=== PATIENT | female | born 1955 | race Caucasian/White ===

== ENCOUNTER 2023-06-10 07:59 | Outpatient (OUT) | payer OTHER, SELFPAY ==
--- NOTE | 2023-06-10 08:03 | XR_ITS ---
The [address] [address] Patient Name: TARA ROA MRN: [id number] date: 1955 Sex: F Assigned Patient Location: [facility] Current Patient Location: [facility] Accession/Order Number: [id number] Exam Date: 06/10/2023 08:20 Report Date: 06/10/2023 08:46 At the request of: RAFAELA FRYE Procedure: XR shoulder LT min 2V EXAM: Left shoulder. HISTORY: . Left Shoulder Pain . COMPARISON: None. TECHNIQUE: 3 views FINDINGS: No fracture or dislocation of the left shoulder is noted. Early arthritic changes are noted involving the humeral head as well as the left AC joint. Surrounding soft tissues are unremarkable. XR/XR shoulder LT min 2V IMPRESSION: 1. No acute bony abnormality left shoulder. 2. Early arthritic changes of the left AC joint. Electronically authenticated by: AMAURI BACON Date: 06/10/2023 08:46
== END 2023-06-10 08:00 | disposition home or self-care (01) ==
LOC: RAD 07:59
PROVIDERS: PCP Nurse Practitioner; Visit Provider Nurse Practitioner
DX: M25.512 Pain in left shoulder (principal)
CPT/HCPCS: 73030

== ENCOUNTER 2024-06-01 07:37 | Emergency (ER) | payer OTHER, SELFPAY ==
[2024-06-01 07:43] VITALS: BP 137/78; PULSE 79; TEMP 37.1; O2SAT 95; BMI 31.1
--- NOTE | 2024-06-01 07:57 | XR_ITS ---
The [address] [address] Patient Name: TARA ROA MRN: [id number] date: 1955 Sex: F Assigned Patient Location: ER Current Patient Location: Accession/Order Number: [id number] Exam Date: 06/01/2024 08:20 Report Date: 06/01/2024 09:04 At the request of: KATHLEEN COVINGTON Procedure: XR knee RT 3V EXAM: XR knee RT 3V HISTORY: pain COMPARISON: None. TECHNIQUE: AP, oblique and lateral views of the right knee performed. FINDINGS: The bony alignment is anatomic. There is no fracture. There are mild degenerative changes at the medial compartment of the femoral-tibial and patellofemoral articulations. There is a 3.3 mm ossicle projecting over the inner margin of the lateral compartment of the femoral-tibial articulation. Small enthesophytes at the patellar attachment of the quadriceps and patellar tendons. There is a moderate joint effusion at the knee. XR/XR knee RT 3V IMPRESSION: There is no acute fracture or malalignment. Degenerative changes as described. Moderate joint effusion at the knee. Electronically authenticated by: MARYLOU COREY Date: 06/01/2024 09:04
--- OUTSIDE RECORDS SUMMARY | 2024-06-01 07:57 | XMS_ITS | CCD ---
Author Organization [facility] Care Team Providers Care Blender / Cook Name Role Phone NEAL MCCORMICK JR Unavailable Unavailable JACE CUELLAR JR Unavailable Unav ailable NEAL MCCORMICK JR Unavailable Unavailable Tracy Gaytan Primary Care Unavailable Jace Cuellar Jr Attending Unavailable GaytanTracy duran Primary Care Unavailable Jace Cuellar Jr Admitting Unavailable Jace Cuellar Jr Attending Unavailable Laura Rivera Unavailable GAYTAN ., DR TRACY Kan Attending Unavailable GAYTAN ., DR TRACY Kan Admitting Unavailable GAYTAN ., DR TRACY Kan Primary Care Unavailable GAYTAN ., DR TRACY Kan Consulting Unavailable WILLIAMS, DR AMAURI Rodríguez Consulting Unavailable GAYTAN ., DR TRACY Kan Attending Unavailable GAYTAN ., DR TRACY Kan Admitting Unavailable GAYTAN ., DR TRACY Kan Primary Care Unavailable GAYATN ., DR TRACY Kan Consulting Unavailable GAYTAN ., DR TRACY Kan Consulting Unavailable GAYTAN ., DR TRACY Kan Attending Unavailable GAYTAN ., DR TRACY Kan Admitting Unavailable GAYTAN ., DR TRACY Kan Primary Care Unavailable Opal Spaulding Attending Unavailable Opal Spaulding Attending Unavailable Opal Spaulding Attending Unavailable Opal Spaulding Attending Unavailable Gaytan Tracy ALBERTO Primary Care Provider [phone] Medications Current Medications Medication Drug Class(es) Dates Sig (Normalized) Sig (Original) [id number] 200 actuat albuterol 0.09 mg/actuat metered dose inhaler (1 source) beta2-Adrenergic Agonist Start: 12-09-2021 take 2 puff(s) by inhalation every four hours as needed Albuterol Sulfate HFA 108 (90 Base) MCG/ACT 2 puffs as needed Inhalation every 4 hrs Dec, Active amitriptyline hydrochloride 25 mg oral tablet (2 sources) Tricyclic Antidepressant take 1-2 tablets by mouth 2 hour(s) before bedtime for sleep amitriptyline (Elavil) 25 MG tablet TAKE 1 - 2 TABLETS BY MOUTH TWO HOURS BEFORE BEDTIME FOR SLEEP Active baclofen 10 mg oral tablet (1 source) gamma-Aminobutyric Acid-ergic Agonist Baclofen 10 MG Oral for 30 Days Active celecoxib 200 mg oral capsule (2 sources) Nonsteroidal Anti-inflammatory Drug take 1 capsule by mouth in the morning celecoxib (CeleBREX) 200 MG capsule Take 200 mg by mouth in the morning. Active Celecoxib Active citalopram 20 mg oral tablet (2 sources) Serotonin Reuptake Inhibitor take 1 tablet by mouth in the morning citalopram (CeleXA) 20 MG tablet Take 20 mg by mouth in the morning. Active clopidogrel 75 mg oral tablet (1 source) P2Y12 Platelet Inhibitor take 1 tablet by mouth in the morning clopidogrel (Plavix) 75 MG tablet Take 75 mg by mouth in the morning. Active 12 hr dextromethorphan hydrobromide 30 mg / guaiFENesin 600 mg extended release oral tablet (1 source) Uncompetitive L-niajby-U-aspartate Receptor Antagonist, Sigma-1 Agonist Start: 2021 take 1 tablet by mouth every twelve hours Mucinex DM 30-600 MG 1 tablet as needed Orally every 12 hrs Dec, Active fenofibrate 160 mg oral tablet (1 source) Peroxisome Proliferator Receptor alpha Agonist Fenofibrate 160 MG O ral for 30 Days Active metFORMIN hydrochloride 500 mg oral tablet (1 source) Biguanide metFORMIN HCl 50 0 MG Oral for 30 Days Active methylPREDNISolone 4 mg oral tablet (1 source) Corticosteroid Start: 2021 methylPREDNISolone 4 MG as directed Orally Once a day for 6 days Dec, Active oxybutynin chloride 5 mg oral tablet (2 sources) Cholinergic Muscarinic Antagonist Start: 2022 take 1 tablet by mouth once daily oxybutynin (Ditropan) 5 MG tablet 30 EA, TAKE 1 TABLET BY MOUTH EVERY DAY, Refills(s) 0 01/08/2023 Active take 1 tablet by mouth once rosemarie y Oxybutynin Chloride 5 MG TAKE 1 TABLET BY MOUTH EVERY DAY Oral for 30 Days Active pantoprazole 20 mg delayed release oral tablet (1 source) Proton Pump Inhibitor take 1 tablet by mouth in the morning pantoprazole (ProtoNix) 20 MG EC tablet Take 20 mg by mouth in the morning and 20 mg before bedtime. Active rosuvastatin calcium 10 mg oral tablet (2 sources) HMG-CoA Reductase Inhibitor take 1 tablet by mouth in the morning rosuvastatin (Crestor) 10 MG tablet Take 10 mg by mouth in the morning. Active Problems Active Problems Problem Classification Problem Date Documented Date Episodic/Chronic Acute cerebrovascular disease (4 sources) Cerebral infarction due to unspecified occlusion or stenosis of unspecified cerebral artery; Translations: [CEREB INFARCT UNS OCCL UNS CERB ART] Onset: 01-26-2022 Chronic Glaucoma (1 source) Anatomical narrow angle, bilateral; Translations: [Anatomical narrow angle borderline glaucoma] Onset: 02-16-2023 02-16-2023 Chronic Osteoarthritis (2 sources) Unilateral primary osteoarthritis, unspecified knee; Translations: [Osteoarthritis of left hip joint] Onset: 12-17-2016 01-24-2024 Chronic Other non-traumatic joint disorders (1 source) Pain in right knee; Translations: [Pain in joint, lower leg] 01-24-2024 Episodic Other screening for suspected conditions (not mental disorders or infectious disease) (4 sources) Encounter for screening mammogram for malignant neoplasm of breast; Translations: [ENC SCR MAMMO MALIG NEOPLASM BREAST] Onset: 10-02-2022 Episodic Residual codes; unclassified (1 source) Family history of malignant neoplasm of gastrointestinal tract; Translations: [Family history of colon cancer] Episodic Residual codes; unclassified (1 source) Family history of malignant neoplasm of digestive organs; Translations: [FAM HX MALIG NEOPLASM DIGESTIV ORGN] Onset: 10-05-2022 Episodic Unclassified (1 source) M75.42 - Impingement syndrome of left shoulder; Translations: [M75.42 - Impingement syndrome of left shoulder] Onset: 07-21-2018 Past or Other Problems Problem Classification Problem Date Documented Da te Episodic/Chronic Chronic obstructive pulmonary disease and bronchiectasis (1 source) Bronchitis, not specified as acute or chronic Onset: 12-09-2021 Resolved: 12-09-2021 Episodic Viral infection (1 source) COVID-19 Onset: 12-09-2021 Resolved: 12-09-2021 Results Test Name Value Interpretation Reference Range Facility Provider Letteron 01-03-2024 Provider Letter Provider Letter January 03, 2024 [address] [place] [id number] : 1955 To Whom It May Concern, Please excuse above patient from work. Date of Illness: From: 01/03/2024 To: 01/05/2024 May Return to Work On: 01/06/2024 Sincerely, Family Medicine Emil [address] [place], [place] [id number] [facility] Family Medicine Office/Clini c Noteon 12-29-2023 Family Medicine Office/Clinic Note Family Medicine Office/Clinic Note Chief Complaint Head Congestion HPI Staff Pt presents today due to head congestion, coughing w/phlegm & nausea. Onset: 2-3wks ago Location: Abdominal pain today only. Characteristics:_Yellow nasal drainage Did take OTC Tylenol Associated Symptoms:_Denies fever. History of Present Illness pt presents today for URI symptoms Review of Systems PHQ Score Initial Depression Screen Score: 0 SCORE Physical Exam Vitals & Measurements T: 37 ?C(Oral) HR: 75(Peripheral) RR: 16 BP: 130/74 SpO2: 84% HT: 60 in HT: 152 cm WT: 75 kg WT: 165 lb BMI: 32.46 General: alert, no acute distress ENMT: oral mucosa moist, no pharyngeal erythema or exudate Cardiovascular: regular rate and rhythm, normal peripheral perfusion Respiratory: Lungs CTA, respirations non labored Extremities: no deformity, no trauma Neurological: oriented x 4, LOC appropriate for age, CN II-XII intact, motor strength equal & normal bilaterally, speech normal Assessment/Plan 1. COVID-19 virus detected (U07.1: COVID-19) Covid 19 test positive in office today Ordered: azithromycin, = 1 packet(s), Oral, As Directed, as directed on package labeling, X 5 day(s), # 6 tab(s), Refills(s) 0, Pharmacy: [facility]/pharmacy #[id number], 152, cm, 12/29/23 17:13:00 EDT, Height/Length Dosing, 75, kg, 12/29/23 17:13:00 EDT, Weight Dosing benzonatate, 200 mg = 1 cap(s), Oral, TID, X 7 day(s), # 21 cap(s), Refills(s) 0, Pharmacy: [facility]/pharmacy #[id number], 152, cm, 12/29/23 17:13:00 EDT, Height/Length Dosing, 75, kg, 12/29/23 17:13:00 EDT, Weight Dosing methylPREDNISolone, = 1 packet(s), Oral, As Directed, as directed on package labeling, X 6 day(s), # 21 tab(s), Refills(s) 0, [id number], 152, cm, 12/29/23 17:13:00 EDT, Height/Length Dosing, 75, kg, 12/29/23 17:13:00 EDT, Weight Dosing Rapid COVID POC 90942 2. Cough (R05.9: Cough, unspecified) severe cough noted on exam. Ordered: azithromycin, = 1 packet(s), Oral, As Directed, as directed on package labeling, X 5 day(s), # 6 tab(s), Refills(s) 0, [id number], 152, cm, 12/29/23 17:13:00 EDT, Height/Length Dosing, 75, kg, 12/29/23 17:13:00 EDT, Weight Dosing benzonatate, 200 mg = 1 cap(s), Oral, TID, X 7 day(s), # 21 cap(s), Refills(s) 0, [id number], 152, cm, 12/29/23 17:13:00 EDT, Height/Length Dosing, 75, kg, 12/29/23 17:13:00 EDT, Weight Dosing methylPREDNISolone, = 1 packet(s), Oral, As Directed, as directed on package labeling, X 6 day(s), # 21 tab(s), Refills(s) 0, [id number], 152, cm, 12/29/23 17:13:00 EDT, Height/Length Dosing, 75, kg, 12/29/23 17:13:00 EDT, Weight Dosing 3. Congestion of nasal sinus (R09.81: Nasal congestion) pt is very congested having sob and tightness. will send z anup, medrol and tessalon frannie. pt to remian off work until wednesday Ordered: azithromycin, = 1 packet(s), Oral, As Directed, as directed on package labeling, X 5 day(s), # 6 tab(s), Refills(s) 0, [id number], 152, cm, 12/29/23 17:13:00 EDT, Height/Length Dosing, 75, kg, 12/29/23 17:13:00 EDT, Weight Dosing benzonatate, 200 mg = 1 cap(s), Oral, TID, X 7 day(s), # 21 cap(s), Refills(s) 0, [id number], 152, cm, 12/29/23 17:13:00 EDT, Height/Length Dosing, 75, kg, 12/29/23 17:13:00 EDT, Weight Dosing methylPREDNISolone, = 1 packet(s), Oral, As Directed, as directed on package labeling, X 6 day(s), # 21 tab(s), Refills(s) 0, Pharmacy: [facility] #[id number], 152, cm, 12/29/23 17:13:00 EDT, Height/Length Dosing, 75, kg, 12/29/23 17:13:00 EDT, Weight Dosing 4. Class 1 obesity due to excess calories in adult (E66.09: Other obesity due to excess calories) see above Ordered: azithromycin, = 1 packet(s), Oral, As Directed, as directed on package labeling, X 5 day(s), # 6 tab(s), Refills(s) 0, Pharmacy: [facility] #[id number], 152, cm, 12/29/23 17:13:00 EDT, Height/Length Dosing, 75, kg, 12/29/23 17:13:00 EDT, Weight Dosing benzonatate, 200 mg = 1 cap(s), Oral, TID, X 7 day(s), # 21 cap(s), Refills(s) 0, [id number], 152, cm, 12/29/23 17:13:00 EDT, Height/Length Dosing, 75, kg, 12/29/23 17:13:00 EDT, Weight Dosing methylPREDNISolone, = 1 packet(s), Oral, As Directed, as directed on package labeling, X 6 day(s), # 21 tab(s), Refills(s) 0, Pharmacy: [facility]/pharmacy #[id number], 152, cm, 12/29/23 17:13:00 EDT, Height/Length Dosing, 75, kg, 12/29/23 17:13:00 EDT, Weight Dosing 5. Non-smoker (Z78.9: Other specified health status) continue not smoking Ordered: azithromycin, = 1 packet(s), Oral, As Directed, as directed on package labeling, X 5 day(s), # 6 tab(s), Refills(s) 0, Pharmacy: [facility]/pharmacy #[id number], 152, cm, 12/29/23 17:13:00 EDT, Height/Length Dosing, 75, kg, 12/29/23 17:13:00 EDT, Weight Dosing benzonatate, 200 mg = 1 cap(s), Oral, TID, X 7 day(s), # 21 cap(s), Refills(s) 0, Pharmacy: [facility]/pharmacy #[id number], 152, cm, 12/29/23 17:13:00 EDT, Height/Length Dosing, 75, kg, 12/29/23 17:13:00 EDT, Weight Dosing methylPREDN (more content not included)... [facility] Comment on above: Result Comment: Elec tronically Signed By: Opal Elise\.br\Date and Time Signed: 12/29/23 17:57 EDT Provider Letteron 12-29-2023 Provider Letter Provider Letter December 29, 2023 GIOVANI ROA [address] [id number] : 1955 To Whom It May Concern, Please excuse above patient from work. Date of Illness: From: 12/29/2023 To: 01/02/2024 May Return to Work On: 01/03/2024 Sincerely, Family Medicine [address] [address] [facility] Ambulatory Visit Summaryon 0 06-23-2023 Ambulatory Visit Summary GIOVANI ROA :1955 Visit Date:06/23/2023 Ambulatory Visit Instructions Your Diagnosis BMI 33.0-33.9,adult Non-smoker Your Care Team Attending Physician - Opal Elise Primary Care Physician - Opal Elise This Is Your Medications List amitriptyline (amitriptyline 25 mg Tab) aspirin (aspirin 81 mg Chew Tab) baclofen (baclofen 10 mg Tab) celecoxib (celecoxib 200 mg Cap) citalopram (citalopram 20 mg Tab) clopidogrel (clopidogrel 75 mg Tab) fenofibrate (fenofibrate 160 mg oral tablet) metformin (metformin 500 mg Tab) oxybutynin (oxybutynin 5 mg Tab) pantoprazole (Pantoprazole [address] Tab) rosuvastatin (rosuvastatin 10 mg Tab) Procedures Performed Suspension of bladder (10/27/2018), Cystoscopy (10/18/2018), Arthroscopy of shoulder, Carpal tunnel, History of left knee replacement, History of right hip replacement. Discharge Vitals Heart Rate (Peripheral) 88 Respiratory Rate 18 Blood Pressure 136/80 Height 152 cm Height 60 in Weight 78.2 kg Weight 172.04 lb BMI 33.85 Medications What How Much When Why Instructions Unchanged amitriptyline (amitriptyline 25 mg Tab) See instructions 1-2 tabs by mouth two hours before bedtime for sleep Unchanged aspirin (aspirin 81 mg Chew Tab) 1 Tablets By Mouth Every day BMI 30.0-30.9,adult Non-smoker Well adult exam Type 2 diabetes mellitus Elevated cholesterol Unchanged baclofen (baclofen 10 mg Tab) 1 Tablets By Mouth 3 times a day Duration: 90 Days Unchanged celecoxib (celecoxib 200 mg Cap) 1 Capsules By Mouth Every day Duration: 30 Days Unchanged citalopram (citalopram 20 mg Tab) 1 Tablets By Mouth Every day Duration: 90 Days Unchanged clopidogrel (clopidogrel 75 mg Tab) 1 Tablets By Mouth Every day Unchanged fenofibrate (fenofibrate 160 mg oral tablet) 1 Tablets By Mouth Every day Duration: 90 Days Unchanged metformin (metformin 500 mg Tab) 1 Tablets By Mouth 2 times a day 60 EA, TAKE 1 TABLET BY MOUTH TWICE A DAY Unchanged oxybutynin (oxybutynin 5 mg Tab) 1 Tablets By Mouth Every day 30 EA, TAKE 1 TABLET BY MOUTH EVERY DAY Unchanged pantoprazole (Pantoprazole [address] Tab) 1 Tablets By Mouth 2 times a day Unchanged rosuvastatin (rosuvastatin 10 mg Tab) 1 Tablets By Mouth Every day Allergies No Known Allergies Problems Ongoing - Any problem that you are currently receiving treatment for. Adult general medical exam Arthritis BMI 30.0-30.9,adult Class 1 obesity due to excess calories in adult Depression Elevated cholesterol Female stress incontinence Glucosuria Left shoulder pain Nocturia Sleep disorder Type 2 diabetes mellitus Well adult exam Patient Survey You may receive a survey via text or e-mail asking about your office visit. Please share your experience with us by completing your survey. We appreciate your feedback and thank you for choosing us for your care. [facility] Family Medicine Office/Clini c Noteon 06-23-2023 Family Medicine Office/Clinic Note HPI Staff Giovani is a 67 year old female presenting for 2 week follow up Pain characteristics: LYDIA 06/08/22 Kenalog injection given, x-ray ordered Pain location: left side of neck/upper back and left shoulder Intensity:_ Onset: Medication used: Pt states isn't having any more pain 1-2 months has been having hot flashes Review of Systems PHQ Score Initial Depression Screen Score: 0 SCORE Physical Exam Vitals & Measurements HR: 88(Peripheral) RR: 18 BP: 136/80 SpO2: 99% HT: 60 in HT: 152 cm WT: 78.2 kg WT: 172.04 lb BMI: 33.85 Assessment/Plan 1. Elevated cholesterol (E78.00: Pure hypercholesterolemia, unspecified) pt is here to discuss decreasing some of her meds. discussed all meds at length. last Chol was elevated. so provider told her it is not a good idea to d/c one of the 2 cholesterol meds she is on. pt verbalizes understanding. pt is going to d/c aspirin and celebrex since she is on a blood thinner. otherwise she plans to continue all other meds. pt is having trouble affording her monthly meds. RTC in October for wellness visit. 2. Type 2 diabetes mellitus (E11.9: Type 2 diabetes mellitus without complications) pt will have HGBA1C drawn in September. orders provided 3. BMI 33.0-33.9,adult (Z68.33: Body mass index [BMI] 33.0-33.9, adult) BMI education complete 4. Non-smoker (Z78.9: Other specified health status) continue not smoking Follow-up No qualifying data available Problem List/Past Medical History Ongoing Adult general medical exam Arthritis BMI 30.0-30.9,adult Class 1 obesity due to excess calories in adult Depression Elevated cholesterol Female stress incontinence Glucosuria Left shoulder pain Nocturia Sleep disorder Type 2 diabetes mellitus Well adult exam Historical No qualifying data Procedure/Surgical History Suspension of bladder (10/27/2018), Cystoscopy (10/18/2018), Arthroscopy of shoulder, Carpal tunnel, History of left knee replacement, History of right hip replacement. Medications amitriptyline 25 mg Tab, See Instructions, 1 refills aspirin 81 mg Chew Tab, 81 mg= 1 tab(s), Oral, Daily, 3 refills baclofen 10 mg Tab, 10 mg= 1 tab(s), Oral, TID, 3 refills celecoxib 200 mg Cap, 200 mg= 1 cap(s), Oral, Daily, 11 refills citalopram 20 mg Tab, 20 mg= 1 tab(s), Oral, Daily, 3 refills clopidogrel 75 mg Tab, 75 mg= 1 tab(s), Oral, Daily, 5 refills fenofibrate 160 mg oral tablet, 160 mg= 1 tab(s), Oral, Daily, 3 refills metformin 500 mg Tab, 500 mg= 1 tab(s), Oral, BID, 3 refills oxybutynin 5 mg Tab, 5 mg= 1 tab(s), Oral, Daily, 1 refills Pantoprazole [address] Tab, 20 mg= 1 tab(s), Oral, BID, 1 refills rosuvastatin 10 mg Tab, 10 mg= 1 tab(s), Oral, Daily Allergies No Known Allergies Social History Alcohol - Denies Alcohol Use, 11/11/2018 Tobacco - Denies Tobacco Use, 11/11/2018 Never (less than 100 in lifetime) Tobacco Use:. Never Smokeless Tobacco Use:. Household tobacco concerns: No., 06/23/2023 Family History Acute myocardial infarction: Father. Primary malignant neoplasm of colon: Mother. Immunizations Vaccine Date Status SARSCoV2 mRNA(jnaclrhjr-gryw-oasd os) vac 07/25/2021 Recorded zoster vaccine, inactivated 10/04/2020 Recorded SARS-CoV-2 (COVID-19) mRNA BNT-162b2 vax 08/29/2020 Recorded SARS-CoV-2 (COVID-19) mRNA BNT-162b2 vax 08/08/2020 Recorded zoster vaccine, inactivated 07/16/2020 Recorded Normal [facility] Comment on above: Result Comment: Elec tronically Signed By: Opal Elise\.br\Date and Time Signed: 06/23/23 16:42 EST RAD - MISCon 06-10-2023 RAD - MISC [id number] 2050 [id number] F Normal [facility] Ambulatory Visit Summaryon 0 06-08-2023 Ambulatory Visit Summary GIOVANI ROA Ally :1955 Visit Date:06/08/2023 Ambulatory Visit Instructions Your Diagnosis Left shoulder pain BMI 31.0-31.9,adult Your Care Team Attending Physician - Opal Elise Primary Care Physician - Opal Elise This Is Your Medications List [facility] Prescription (#####) amitriptyline (amitriptyline 25 mg Tab) aspirin (aspirin 81 mg Chew Tab) baclofen (baclofen 10 mg Tab) celecoxib (celecoxib 200 mg Cap) citalopram (citalopram 20 mg Tab) clopidogrel (clopidogrel 75 mg Tab) fenofibrate (fenofibrate 160 mg oral tablet) metformin (metformin 500 mg Tab) oxybutynin (oxybutynin 5 mg Tab) pantoprazole (Pantoprazole [address] Tab) rosuvastatin (rosuvastatin 10 mg Tab) Procedures Performed Suspension of bladder (10/27/2018), Cystoscopy (10/18/2018), Arthroscopy of shoulder, Carpal tunnel, History of left knee replacement, History of right hip replacement. Discharge Vitals Heart Rate (Peripheral) 68 Respiratory Rate 18 Blood Pressure 124/76 Height 157 cm Height 62 in Weight 77.2 kg Weight 169.84 lb BMI 31.32 What to do next Scheduled Follow-Up Appointments Wednesday 3:20 PM EST With: Opal Elise Where: [facility] [place] Normal [facility] [place] 06-08-2023 Consent [id number] 1033 [id number] F Nica [facility] Medicine Office/Clini c Noteon 06-08-2023 [facility] Medicine Office/Clinic Note HPI Staff Giovani is a 67 year old female presenting for acute visit Pain characteristics: Pain location: left side of neck/upper back and left shoulder Intensity:5/10 while resting when using 10/10 Onset: 05/13/23 Medication used: Ibuprofen and Tylenol no injury known of, Pain can be intermittent but more consistent. Pain is aching, pain with lifting arm up. Has been using deep blue/bio freeze and taking ibuprofen and Tylenol . pt states had same symptoms in right shoulder over 10 years ago and had to have surgery. 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 History of Present Illness pt presents for left shoulder pain. 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 does not remember injuring it. had same pain in right shoulder years ago and Dr. Little did surgery on it Review of Systems PHQ Score Initial Depression Screen Score: 0 SCORE ROS - Provider Constitutional: no fever, no chills, no sweats, no fatigue Respiratory: no shortness of breath, no cough, no orthopnea, no wheezing. Cardiovascular: no chest pain, no palpitations, no edema. Neurologic: no headache, no dizziness, no numbness, no weakness. left shoulder pain Physical Exam Vitals & Measurements HR: 68(Peripheral) RR: 18 BP: 124/76 SpO2: 99% HT: 62 in HT: 157 cm WT: 77.2 kg WT: 169.84 lb BMI: 31.32 General: alert, no acute distress ENMT: oral mucosa moist, no pharyngeal erythema or exudate Cardiovascular: regular rate and rhythm, normal peripheral perfusion Respiratory: Lungs CTA, respirations non labored Extremities: no deformity, no trauma Neurological: oriented x 4, LOC appropriate for age, CN II-XII intact, motor strength equal & normal bilaterally, speech normal Left shoulder ROM limited. can not raise arm above her head above 90 degrees. Can't even blow dry her hair Assessment/Plan 1. Left shoulder pain (M25.512: Pain in left shoulder) pt having worsening shoulder pain. having trouble lifting her arm above 90 degrees. can't even blow dry her hair. will order x ray. pt is already on daily anti inflammatory. will give steroid injection in office today and order x ray. after we get those results, will order MRI if needed. pt would like referral to Dr. Little. pt is also questioning if she needs to be on all the meds she is currently on. she will return in 2 weeks with her pill bottles so we can sort things out. she can not afford $100 a month on meds anymore. will review labs and discuss meds at next visit. 2. BMI 31.0-31.9,adult (Z68.31: Body mass index [BMI] 31.0-31.9, adult) BMI education complete Follow-up No qualifying data available Problem List/Past Medical History Ongoing Adult general medical exam Arthritis BMI 30.0-30.9,adult Class 1 obesity due to excess calories in adult Depression Elevated cholesterol Female stress incontinence Glucosuria Left shoulder pain Nocturia Sleep disorder Type 2 diabetes mellitus Well adult exam Historical No qualifying data Procedure/Surgical History Suspension of bladder (10/27/2018), Cystoscopy (10/18/2018), Arthroscopy of shoulder, Carpal tunnel, History of left knee replacement, History of right hip replacement. Medications #####, 0 amitriptyline 25 mg Tab, See Instructions, 1 refills aspirin 81 mg Chew Tab, 81 mg= 1 tab(s), Oral, Daily, 3 refills baclofen 10 mg Tab, 10 mg= 1 tab(s), Oral, TID, 3 refills celecoxib 200 mg Cap, 200 mg= 1 cap(s), Oral, Daily, 11 refills citalopram 20 mg Tab, 20 mg= 1 tab(s), Oral, Daily, 3 refills clopidogrel 75 mg Tab, 75 mg= 1 tab(s), Oral, Daily, 5 refills fenofibrate 160 mg oral tablet, 160 mg= 1 tab(s), Oral, Daily, 3 refills metformin 500 mg Tab, 500 mg= 1 tab(s), Oral, BID, 3 refills oxybutynin 5 mg Tab, 5 mg= 1 tab(s), Oral, Daily, 1 refills Pantoprazole [address] Tab, 20 mg= 1 tab(s), Oral, BID, 1 refills rosuvastatin 10 mg Tab, 10 mg= 1 tab(s), Oral, Daily Allergies No Known Allergies Social History Alcohol - Denies Alcohol Use, 11/11/2018 Tobacco - Denies Tobacco Use, 11/11/2018 Never (less than 100 in lifetime) Tobacco Use:. Never Smokeless Tobacco Use:. Household tobacco concerns: No., 06/08/2023 Family History Acute myocardial infarction: Father. Primary malignant neoplasm of colon: Mother. Immunizations Vaccine Date Status SARSCoV2 mRNA(rkxmivljl-ukqn-kldh os) vac 07/25/2021 Recorded zoster vaccine, inactivated 10/04/2020 Recorded SARS-CoV-2 (COVID-19) mRNA BNT-162b2 vax 08/29/2020 Recorded SARS-CoV-2 (COVID-19) mRNA BNT-162b2 vax 08/08/2020 Recorded zoster vaccine, inactivated 07/16/2020 Recorded Normal [facility] Comment on above: Result Comment: Elec tronically Signed By: Opal Elise\.br\Date and Time Signed: 06/08/23 12:31 EST Physician Orderon 06-08-2023 Physician Order [id number] Normal [facility] Family Medicine Office/Clini c Noteon 01-08-2023 Family Medicine Office/Clinic Note HPI Staff Giovani is a 67 year old female presenting to establish care Establish Care: History: Any previous diagnosis: Depression, nocturia, sleep disorder, elevated cholesterol , DM History of seeing any specialist: When was your last doctors visit: Last provider: Dr Gaytan Any recent labs: 10/03/22 Health Maintenance UTD: Colonoscopy: around 5-10 years ago , [facility] normal Mammogram: 2022 normal Pelvic/Pap: long time ago Acute: Current issues/complaints: pt needs refills om ASA 81, Fenofibrate, Metformin, Citalopram, Baclofen, Celecoxib 2021 went to [facility] for possible stroke symptoms due to slurring her words pt states testing done showed she didn't have a stroke. she was put on Plavix doesn't follow with anyone. History of Present Illness pt presents today to establish care. is in need of some refills. Review of Systems PHQ Score Initial Depression Screen Score: 3 ROS - Provider Constitutional: no fever, no chills, no sweats, no fatigue Respiratory: no shortness of breath, no cough, no orthopnea, no wheezing. Cardiovascular: no chest pain, no palpitations, no edema. Neurologic: no headache, no dizziness, no numbness, no weakness. Physical Exam Vitals & Measurements HR: 68(Peripheral) RR: 18 BP: 126/64 SpO2: 93% HT: 62 in HT: 157 cm WT: 75.9 kg WT: 166.98 lb BMI: 30.79 General: alert, no acute distress ENMT: oral mucosa moist, no pharyngeal erythema or exudate Cardiovascular: regular rate and rhythm, normal peripheral perfusion Respiratory: Lungs CTA, respirations non labored Extremities: no deformity, no trauma Neurological: oriented x 4, LOC appropriate for age, CN II-XII intact, motor strength equal & normal bilaterally, speech normal Assessment/Plan 1. Well adult exam (Z00.00: Encounter for general adult medical examination without abnormal findings) pt presents today for wellness visit. had labs done in September right before Dr. Gaytan left. is in need of refills on meds. physical exam WNL. all questions answered. RTC in September. pt is doing well. she is still working at [employer] 2. Type 2 diabetes mellitus (E11.9: Type 2 diabetes mellitus without complications) HGBA1C iwa 5.6 in September 3. Elevated cholesterol (E78.00: Pure hypercholesterolemia, unspecified) Will refill meds. repeat lipid in September Follow-up No qualifying data available Problem List/Past Medical History Ongoing Adult general medical exam Arthritis BMI 30.0-30.9,adult Class 1 obesity due to excess calories in adult Depression Elevated cholesterol Female stress incontinence Glucosuria Nocturia Sleep disorder Type 2 diabetes mellitus Well adult exam Historical No qualifying data Procedure/Surgical History Suspension of bladder (10/27/2018), Cystoscopy (10/18/2018), Arthroscopy of shoulder, Carpal tunnel, History of left knee replacement, History of right hip replacement. Medications #####, 0 amitriptyline 25 mg Tab, 25 mg= 1 tab(s), Oral baclofen 10 mg Tab, 10 mg= 1 tab(s), Oral, TID, 1 refills celecoxib 200 mg Cap, 200 mg= 1 cap(s), Oral, Daily, 1 refills citalopram 20 mg Tab, 20 mg= 1 tab(s), Oral, Daily, 1 refills clopidogrel 75 mg Tab fenofibrate 160 mg oral tablet, 160 mg= 1 tab(s), Oral, Daily metformin 500 mg Tab oxybutynin 5 mg Tab Pantoprazole [address] Tab rosuvastatin 10 mg Tab, 10 mg= 1 tab(s), Oral, Daily Allergies No Known Allergies Social History Alcohol - Denies Alcohol Use, 11/11/2018 Tobacco - Denies Tobacco Use, 11/11/2018 Never (less than 100 in lifetime) Tobacco Use:. Never Smokeless Tobacco Use:. Household tobacco concerns: No., 01/08/2023 Family History Acute myocardial infarction: Father. Primary malignant neoplasm of colon: Mother. Immunizations Vaccine Date Status SARSCoV2 mRNA(ushxphwaq-upce-qnbd os) vac 07/25/2021 Recorded zoster vaccine, inactivated 10/04/2020 Recorded SARS-CoV-2 (COVID-19) mRNA BNT-162b2 vax 08/29/2020 Recorded SARS-CoV-2 (COVID-19) mRNA BNT-162b2 vax 08/08/2020 Recorded zoster vaccine, inactivated 07/16/2020 Recorded Normal [facility] Comment on above: Result Comment: Elec tronically Signed By: Opal Elise\.br\Date and Time Signed: 01/08/23 11:40 EDT CBC AUTO DIFFon 10-03-2022 BASO # 0.0 103/ul Normal 0.0-0.1 [facility] Comment on above: Performed By: #### C BC #### [facility] [address] [place] [address] Dr. Kit Patrick Basophils/100 WBC (Bld) 0.6 % Normal 0.2-2.0 [facility] Comment on above: Performed By: #### C BC #### [facility] [address] [place] [address] Dr. Kit Patrick EO # 0.2 103/ul Normal 0.0-0.7 [facility] Comment on above: Performed By: #### C BC #### [facility] [address] [place] [address] Dr. Kit Patrick Eosinophils/100 WBC (Bld) 3.1 % Normal 0.9-7.0 [facility] Comment on above: Performed By: #### C BC #### [facility] [address] [place] [address] Dr. Kit Patrick Erythrocyte distribution width (RBC) [Ratio] 13.6 % Normal 11.0-15.0 [facility] Comment on above: Performed By: #### C BC #### [facility] [address] [place] [address] Dr. Kit Patrick Hematocrit (Bld) [Volume fraction] 37.6 % Normal 36.0-48.0 [facility] Comment on above: Performed By: #### C BC #### [facility] [address] [place] [address] Dr. Kit Patrick Hemoglobin (Bld) [Mass/Vol] 12.3 g/dL Normal 12.0-16.0 [facility] Comment on above: Performed By: #### C BC #### [facility] [address] [place] [address] Dr. Kit Patrick IG # 0.01 10e3/ul Normal 0.00-0.03 [facility] Comment on above: Performed By: #### C BC #### [facility] [address] [place] [address] Dr. Kit Patrick IG % 0.2 % Normal 0.0-0.5 [facility] Comment on above: Performed By: #### C BC #### [facility] [address] [place] [address] Dr. Kit Patrick LYMPH # 2.5 103/ul Normal 1.2-3.8 [facility] Comment on above: Performed By: #### C BC #### [facility] [address] [place] [address] Dr. Kit Patrick Lymphocytes/100 WBC (Bld) 48.2 % Normal 20.5-60.0 [facility] Comment on above: Performed By: #### C BC #### [facility] [address] [place] [address] Dr. Kit Patrick MANUAL DIFF REQ NO Normal [facility] Comment on above: Performed By: #### C BC #### [facility] [address] [place] [address] Dr. Kit Patrick MCH (RBC) [Entitic mass] 29.4 pg Normal 26.7-34.0 [facility] Comment on above: Performed By: #### C BC #### [facility] [address] [place] [address] Dr. Kit Patrick MCHC (RBC) [Mass/Vol] 32.7 g/dL Normal 29.9-35.2 [facility] Comment on above: Performed By: #### C BC #### [facility] [address] [place] [address] Dr. Kit Patrick MCV (RBC) [Entitic vol] 90.0 fL Normal 81.0-99.0 [facility] Comment on above: Performed By: #### C BC #### [facility] [address] [place] [address] Dr. Kit Patrick MONO # 0.4 103/ul Normal 0.3-0.8 [facility] Comment on above: Performed By: #### C BC #### [facility] [address] [place] [address] Dr. Kit Patrick Monocytes/100 WBC (Bld) 7.1 % Normal 1.7-12.0 [facility] Comment on above: Performed By: #### C BC #### [facility] [address] [place] [address] Dr. Kit Patrick NEUT # 2.1 103/ul Normal 1.4-6.5 [facility] Comment on above: Performed By: #### C BC #### [facility] [address] [place] [address] Dr. Kit Patrick Neutrophils/100 WBC (Bld) 40.8 % Critically low 43.0-75.0 [facility] Comment on above: Performed By: #### C BC #### [facility] [address] [place] [address] Dr. Kit Patrick Platelet mean volume (Bld) [Entitic vol] 10.9 fL Normal 9.5-13.5 [facility] Comment on above: Performed By: #### C BC #### [facility] [address] [place] [address] Dr. Kit Patrick PLT 308 103/ul Normal 150-450 [facility] Comment on above: Performed By: #### C BC #### [facility] [address] [address] [address] Kit Patrick RBC 4.18 106/ul Critically low 4.20-5.40 [facility] Comment on above: Performed By: #### C BC #### [facility] [address] [place] [address] Dr. Kit Patrick WBC 5.2 103/ul Normal 4.0-11.0 [facility] Comment on above: Performed By: #### C BC #### [facility] [address] [place] [address] Dr. Kit Patrick GLYCOHEMOGLOBIN A1Con 2022 ADA RECOMMENDATION SEE BELOW Normal [facility] Comment on above: Result Comment: ADA RECOMMENDED LIMIT 4.0 - 6.0 ADA THERAPEUTIC TARGET < 7.0 ACTION SUGGESTED > 7.0 Performed By: #### A 1C #### [facility] [address] [place] [address] Dr. Kit Patrick Glucose [Mass/Vol] 114 mg/dL Normal [facility] Comment on above: Performed By: #### A 1C #### [facility] [address] [place] [address] Dr. Kit Patrick HbA1c (Bld) [Mass fraction] 5.6 % Normal 4.5-6.2 [facility] Comment on above: Performed By: #### A 1C #### [facility] [address] [place] [address] Dr. Kit Patrick LIPID PROFILEon 10-03-2022 CHOL-HDL RATIO NORM SEE BELOW Normal [facility] Comment on above: Result Comment: 3.3 - 4.4 LOW RISK 4.4 - 7.1 AVERAGE RISK 7.1 - 11.0 MODERATE RISK >11.0 HIGH RISK Performed By: #### L IPID, CMP #### [facility] [address] [address] [address] Kit Patrick Cholesterol [Mass/Vol] 297 mg/dL Critically high <=200 [facility] Comment on above: Performed By: #### L IPID, CMP #### [facility] [address] [address] [address] Kit Patrick Cholesterol in HDL [Mass/Vol] 59 mg/dL Normal 40-60 [facility] Comment on above: Performed By: #### L IPID, CMP #### [facility] [address] [address] [address] Kit Patrick Cholesterol in LDL [Mass/Vol] 220.2 mg/dL Normal [facility] Comment on above: Performed By: #### L IPID, CMP #### [facility] [address] [address] [address] Kit Patrick Cholesterol.total/ Cholesterol in HDL [Mass ratio] 5.0 {ratio} Normal [facility] Comment on above: Performed By: #### L IPID, CMP #### [facility] [address] [address] [address] Kit Patrick HDL NORMAL > or = 60 mg/dl - LO W CARDIOVASCULAR RISK <40 mg/dl - HIGH CARDIOVASCULAR RISK Normal [facility] Comment on above: Performed By: #### L IPID, CMP #### [facility] [address] [address] [address] Kit Patrick LDL CALC NORMAL SEE BELOW Normal [facility] Comment on above: Result Comment: <100 mg/dl OPTIMAL 100 - 129 mg/dl NEAR OR ABOVE OPTIMAL 130 - 159 mg/dl BORDERLINE HIGH 160 - 189 mg/dl HIGH >190 mg/dl VERY HIGH Performed By: #### L IPID, CMP #### [facility] [address] [address] [address] Kit Patrick Triglyceride [Mass/Vol] 89 mg/dL Normal <=150 [facility] Comment on above: Performed By: #### L IPID, CMP #### [facility] [address] [address] [address] Kit Patrick VLDL CALC 17.8 mg/dL Normal [facility] Comment on above: Performed By: #### L IPID, CMP #### [facility] [address] [place] [address] Dr. Kit Patrick PROF 14(COMP METB)on 023 Albumin [Mass/Vol] 4.0 g/dL Normal 3.4-5.0 [facility] Comment on above: Performed By: #### L IPID, CMP #### [facility] [address] [place] [address] Dr. Kit Patrick Albumin/Globulin [Mass ratio] 1.0 {ratio} Normal [facility] Comment on above: Performed By: #### L IPID, CMP #### [facility] [address] [place] [address] Dr. Kit Patrick ALP [Catalytic activity/Vol] 55 U/L Normal 46-116 [facility] Comment on above: Performed By: #### L IPID, CMP #### [facility] [address] [place] [address] Dr. Kit Patrick ALT [Catalytic activity/Vol] 32 U/L Normal 14-59 [facility] Comment on above: Performed By: #### L IPID, CMP #### [facility] [address] [place] [address] Dr. Kit Patrick Anion gap [Moles/Vol] 11.3 mmol/L Normal [facility] Comment on above: Performed By: #### L IPID, CMP #### [facility] [address] [place] [address] Dr. Kit Patrick AST [Catalytic activity/Vol] 29 U/L Normal 15-37 [facility] Comment on above: Performed By: #### L IPID, CMP #### [facility] [address] [place] [address] Dr. Kit Patrick Bilirubin [Mass/Vol] 0.4 mg/dL Normal 0.2-1.0 [facility] Comment on above: Performed By: #### L IPID, CMP #### [facility] [address] [place] [address] Dr. Kit Patrick Calcium [Mass/Vol] 9.3 mg/dL Normal 8.5-10.1 [facility] Comment on above: Performed By: #### L IPID, CMP #### [facility] [address] [place] [address] Dr. Kit Patrick Chloride [Moles/Vol] 105 mmol/L Normal 98-107 [facility] Comment on above: Performed By: #### L IPID, CMP #### [facility] [address] [place] [address] Dr. Kit Patrick CO2 [Moles/Vol] 31.2 mmol/L Normal 21.0-32.0 [facility] Comment on above: Performed By: #### L IPID, CMP #### [facility] [address] [place] [address] Dr. Kit Patrick Creatinine [Mass/Vol] 0.85 mg/dL Normal 0.55-1.02 [facility] Comment on above: Performed By: #### L IPID, CMP #### [facility] [address] [place] [address] Dr. Kit Patrick EGFR-AF ANDORRAN >60 Normal >=60 [facility] Comment on above: Performed By: #### L IPID, CMP #### [facility] [address] [place] [address] Dr. Kit Patrick EGFR-NON AF ANDORRAN >60 Normal >=60 [facility] Comment on above: Performed By: #### L IPID, CMP #### [facility] [address] [place] [address] Dr. Kit Patrick Globulin (S) [Mass/Vol] 4.0 g/dL Normal [facility] Comment on above: Performed By: #### L IPID, CMP #### [facility] [address] [place] [address] Dr. Kit Patrick Glucose [Mass/Vol] 100 mg/dL Normal 74-106 [facility] Comment on above: Performed By: #### L IPID, CMP #### [facility] [address] [place] [address] Dr. Kit Patrick Potassium [Moles/Vol] 4.5 mmol/L Normal 3.5-5.1 [facility] Comment on above: Performed By: #### L IPID, CMP #### [facility] [address] [place] [address] Dr. Kit Patrick Protein [Mass/Vol] 8.0 g/dL Normal 6.4-8.2 [facility] Comment on above: Performed By: #### L IPID, CMP #### [facility] [address] [place] [address] Dr. Kit Patrick Sodium [Moles/Vol] 143 mmol/L Normal 136-145 [facility] Comment on above: Performed By: #### L IPID, CMP #### [facility] [address] [place] [address] Dr. Kit Patrick Urea nitrogen [Mass/Vol] 17.0 mg/dL Normal 7.0-18.0 [facility] Comment on above: Performed By: #### L IPID, CMP #### [facility] [address] [place] [address] Dr. Kit Patrick Urea nitrogen/Creatinin e [Mass ratio] 20.0 mg/mg Normal [facility] Comment on above: Performed By: #### L IPID, CMP #### [facility] [address] [place] [address] Dr. Kit Patrick UA RANDOMon 10-03-2022 Bilirubin Ql (U) Negative Normal NEGATIVE [facility] Comment on above: Performed By: #### U A #### [facility] [address] [place] [address] Dr. Kit Patrick Clarity (U) CLEAR Normal CLEAR [facility] Comment on above: Performed By: #### U A #### [facility] [address] [place] [address] Dr. Kit Patrick Color (U) LT. YELLOW Normal YELLOW [facility] Comment on above: Performed By: #### U A #### [facility] [address] [place] [address] Dr. Kit Patrick Glucose Ql (U) Negative Normal NEGATIVE [facility] Comment on above: Performed By: #### U A #### [facility] [address] [place] [address] Dr. Kit Patrick Hemoglobin Ql (U) Negative Normal NEGATIVE [facility] Comment on above: Performed By: #### U A #### [facility] [address] [place] [address] Dr. Kit Patrick Ketones Ql (U) Negative Normal NEGATIVE [facility] Comment on above: Performed By: #### U A #### [facility] [address] [place] [address] Dr. Kit Patrick LEUKOCYTES SMALL Abnormal NEGATIVE [facility] Comment on above: Performed By: #### U A #### [facility] [address] [place] [address] Dr. Kit Patrick Nitrite Ql (U) Negative Normal NEGATIVE [facility] Comment on above: Performed By: #### U A #### [facility] [address] [place] [address] Dr. Kit Patrick pH (U) 7.0 [pH] Normal 5-9 [facility] Comment on above: Performed By: #### U A #### [facility] [address] [place] [address] Dr. Kit Patrick SPEC GRAVITY 1.010 Normal 1.005-<=1.02 5 [facility] Comment on above: Performed By: #### U A #### [facility] [address] [place] [address] Dr. Kit Patrick UA PROTEIN Negative Normal NEGATIVE/ TRACE [facility] Comment on above: Performed By: #### U A #### [facility] [address] [place] [address] Dr. Kit Patrick Urobilinogen Qn (U) 0.2 {Trevin'U}/dL Normal 0.2 - 1.0 [facility] Comment on above: Performed By: #### U A #### [facility] [address] [place] [address] Dr. Kit Patrick MG MAMM SCREEN 3D KATI CADon 10-02-2022 MG MAMM SCREEN 3D KATI CAD Patient: GIOVANI ROA Exam Date: 10/02/2022 : 1955 Gender:F Ordering : DR TRACY GAYTAN . Admission #: [id number] Family : Order #: [id number] CLICK HERE TO VIEW EXAM RADIOLOGY REPORT PROCEDURE: MAMMOGRAM SCREENING 3D BILATERAL CAD COMPARISON: MG MAMM KATI SCRN W CAD DIG, 01/19/2014. MG MAMM KATI SCRN W CAD DIG, 01/17/2013. INDICATIONS: Screening mammography Calculator Name NCI Breast Cancer Risk Assessment Tool 5 Year Breast Cancer Risk 1.20% Lifetime Breast Cancer Risk 4.70% Personal Breast Cancer No Personal Ovarian Cancer No Treatments None Family Cancers Mother with colon cancer at age 75. LOCATION: [facility] BREAST COMPOSITION: Heterogeneously dense,which may obscure small masses. FINDINGS: DIAGNOSTIC CATEGORY 2--BENIGN FINDING. NO CHANGE FROM COMPARISON. Scattered benign-appearing nodules are present. Progression benign-appearing calcifications are present. Scattered benign-appearing lymph nodes are present. RIGHT BREAST: No significant suspicious finding. LEFT BREAST: No significant suspicious finding. RECOMMENDATIONS: ROUTINE MAMMOGRAM AND CLINICAL EVALUATION IN 12 MONTHS. PLEASE NOTE: A NORMAL MAMMOGRAM DOES NOT EXCLUDE THE POSSIBILITY OF BREAST CANCER. A CLINICALLY SUSPICIOUS PALPABLE LUMP SHOULD BE BIOPSIED. Dictated by: Amauri Caba MD on 10/02/2022 at 10:19 Approved by: Amauri Caba MD on 10/02/2022 at 10:22 Normal [facility] SARS-CoV-2 (COVID-19) RNA NA A+probe Ql (Resp)on 12-09-2021 SARS-CoV-2 (COVID-19) RNA AYAD+probe Ql (Unsp spec) Positive Second & Fourth Other Basic Metabolic Panelon 06-11 Calcium mass conc 9.9 mg/dL Normal 8.2-10.2 [facility] Comment on above: Result Comment: PERF ORMED BY: [place] [id number] PATHOLOGIST SERVICES EXECUTIVE JORDAN SWENSON M.D. Performed By: #### C BC, BMP #### [address] Chloride molar conc 103 mmol/L Normal 95-114 [facility] Comment on above: Performed By: #### C BC, BMP #### [facility] [address] CO2 molar conc 28.6 mmol/L Normal 22.0-30.0 [facility] Comment on above: Performed By: #### C BC, BMP #### [facility] [address] Creatinine mass conc 0.88 mg/dL Normal 0.44-1.03 [facility] Comment on above: Performed By: #### C BC, BMP #### [address] Estimated GFR ( Rosa > 60 Normal [facility] Comment on above: Result Comment: GFR estimated reference range: According to KDOQI guidelines, <60 ml/min/1.73m2 is sufficient to diagnose a patient with chronic kidney disease. Performed By: #### C BC, BMP #### [address] Estimated GFR (Non- Am > 60 Normal [facility] Comment on above: Performed By: #### C BC, BMP #### [address] Glucose mass conc 100 mg/dL Normal 70-100 [facility] Comment on above: Result Comment: [place] om Glucose Reference Range is dependent on time and content of last meal. Glucose of more than 200 mg/dL in a nonstressed, ambulatory subject supports the diagnosis of Diabetes Mellitus. ADA recommended reference range Performed By: #### C BC, BMP #### [place] [address] [place] Potassium molar conc 4.5 mmol/L Normal 3.5-5.1 [facility] Comment on above: Performed By: #### C BC, BMP #### [address] Sodium molar conc 140 mmol/L Normal 136-146 [facility] Comment on above: Performed By: #### C BC, BMP #### [address] [place] [address] [place] Urea nitrogen mass conc 12 mg/dL Normal 9-23 [facility] Comment on above: Performed By: #### C BC, BMP #### [address] Complete Blood Count Auto Di ffon 07-07-2018 Basophils #/vol (Bld) 0.0 10*3/uL Normal 0.0-0.2 [facility] Comment on above: Result Comment: PERF ORMED BY: [place] [address] PATHOLOGIST SERVICES EXECUTIVE JORDAN SWENSON M.D. Performed By: #### C BC, BMP #### [address] Basophils/100 WBC (Bld) 0.6 % Normal . [facility] Comment on above: Performed By: #### C BC, BMP #### [address] Eosinophils #/vol (Bld) 0.2 10*3/uL Normal 0.0-0.45 [facility] Comment on above: Performed By: #### C BC, BMP #### [address] Eosinophils/100 WBC (Bld) 3.3 % Normal . [facility] Comment on above: Performed By: #### C BC, BMP #### [address] Erythrocyte distribution width Ratio (RBC) 13.5 % Normal 11.9-15.3 [facility] Comment on above: Performed By: #### C BC, BMP #### [address] Hematocrit Volume Fraction (Bld) 40.8 % Normal 34.0-46.4 [facility] Comment on above: Performed By: #### C BC, BMP #### [address] Hemoglobin mass conc (Bld) 13.5 g/dL Normal 11.8-15.4 [facility] Comment on above: Performed By: #### C BC, BMP #### [facility] [address] [place] [address] Lymphocytes #/vol (Bld) 3.1 10*3/uL Normal 1.00-4.8 [facility] Comment on above: Performed By: #### C BC, BMP #### [facility] [address] [place] [address] Lymphocytes/100 WBC (Bld) 45.5 % Normal . [facility] Comment on above: Performed By: #### C BC, BMP #### [facility] [address] [place] [address] MCH Entitic mass (RBC) 29.7 pg Normal 24.7-34.3 [facility] Comment on above: Performed By: #### C BC, BMP #### [address] MCH Entitic mass (RBC) 33.1 g/dL Normal 32.0-35.0 [facility] Comment on above: Performed By: #### C BC, BMP #### [address] MCV Entitic volume (RBC) 89.6 fL Normal 80-100 [facility] Comment on above: Performed By: #### C BC, BMP #### [address] Monocytes #/vol (Bld) 0.5 10*3/uL Normal 0.0-0.8 [facility] Comment on above: Performed By: #### C BC, BMP #### [address] Monocytes/100 WBC (Bld) 7.5 % Normal . [facility] Comment on above: Performed By: #### C BC, BMP #### [address] Neutrophils #/vol (Bld) 2.9 10*3/uL Normal 1.8-7.7 [facility] Comment on above: Performed By: #### C BC, BMP #### [facility] [address] [place] [address] [place] Neutrophils/100 WBC (Bld) 43.1 % Normal . [facility] Comment on above: Performed By: #### C RYAN, BMP #### [facility] [address] Nucleated RBC/100 WBC Ratio (Bld) 0.0 % Normal 0-0.5 [facility] Comment on above: Performed By: #### C RYAN, BMP #### [address] Platelet mean volume Entitic volume (Bld) 9.7 fL Normal 6.3-10.7 [facility] Comment on above: Performed By: #### C RYAN, BMP #### [address] Platelets #/vol (Bld) 268 10*3/uL Normal 150-450 [facility] Comment on above: Performed By: #### C RYAN, BMP #### [address] RBC #/vol (Bld) 4.55 10*6/uL Normal 3.60-5.00 [facility] Comment on above: Performed By: #### C RYAN, BMP #### [address] WBC #/vol (Bld) 6.8 10*3/uL Normal 3.8-11.6 [facility] Comment on above: Performed By: #### C RYAN, BMP #### [place] [id number] [facility] ECG 12 lead ECGon 07-07-2018 ECG 12 lead ECG [facility] [place] [address] [place] [address] Electrocardiograph Report Signed Patient: Giovani Roa MR#: [id number] : 1955 Acct:[id number] Age/Sex: 62 / F ADM Date: 07/07/18 Loc: Room: Type: [facility] Attending Dr: Jace Cuellar Jr, DO Ordering Provider: Jace Cuellar Jr of Service: 07/07/18 ECG/ECG 12 lead ECG: surgery 07/21/18 Copies to: Test Reason : Blood Pressure : / mmHG Vent. Rate : 083 BPM Atrial Rate : 083 BPM P-R Int : 138 ms QRS Dur : 084 ms QT Int : 382 ms P-R-T Axes : 048 -34 043 degrees QTc Int : 448 ms Normal sinus rhythm Left axis deviation Cannot rule out Anterior infarct , age undetermined Abnormal ECG No previous ECGs available Confirmed by RHONDA MA MD ([id number]) on 07/08/2018 6:54:26 AM Referred By: JACK Electronically Signed By:RHONDA MA MD Transcribed By: MUS Dictated By: Rhonda Ma MD 07/07/18 1511 Signed By: 07/08/18 0654 [facility] (LOORRM) KORY ROA ([id number]) 1955 [facility] Time Provider Department12/17/16 3:00 PM NEAL MCCORMICK JR MEGHANPreeti During your visit today, we recorded the following information about you:Neal Mccormick Jr, MD 12/17/2016 5:34 PM SignedHISTORY OF PRESENT ILLNESS:Giovani is a 61 year old female. She is here for evaluation of Left kneestiffness. She says it only rarely does she have pain. She reports that shehad a left total knee done in April 2016. She reports that preoperativelyit was stiff. Postoperatively, it is very stiff.Injury:NoLocation of pain: global when presentMechanical Symptoms: grindingOnset: the past 6 months. Again, it is stiffness more than pain.Severity:08/17Swelli ng: Patient notes intermittent swelling of the joint.Aggravating/Allevi ng Factors:Aggravating Factors: Regular daily ambulationAlleviating Factors: RestAssociated symptoms: NonePrior Treatment: surgery (has undergone Left total knee replacement, nopaperwork received)NSAIDS: Patient has not used any prescription, OTC or herbal medications to aidin relief of this problem.PT:Musculoskelet al Physical TherapyREVIEW OF SYSTEMSThe remainder of the review of systems is noncontributoryAll other systems negative.HISTORY No past medical history on file.No past surgical history on file.Social HistorySubstance Use Topics- Smoking status: Not on file- Smokeless tobacco: Not on file- Alcohol use Not on fileMEDICATIONSNo current outpatient prescriptions on file prior to visit.No current facility-administered medications on file prior to visit.ALLERGIESALLERGIES Not on FileEXAMINATION:There were no vitals taken for this visit.Body Habitus: well developed, well nourishedOrientation: Normal: Oriented to person, place and timeAffect: normalGait: antalgic: leftExamination of the Left kneeKnee Examination Left KneeSkin The patient has a well-healed midline incision.Effusion 1+ effusionAlignment normalRange of motion 10? through 90 degreesQuadriceps examination full (5/5) quadriceps strength bilaterally without signsof atrophyPatellar examination Decreased patellar mobilityTenderness medial joint lineMeniscus NonapplicableStability Collateral knee ligaments (LCL/MCL) are all intact with nosignificant laxity noted bilaterallyAdditional Testing no significant restriction in hip range of motion and nocontribution to the knee complaints todaySensation: sensation to light touch is grossly normal bilaterallyPulses: capilliary refill ANDlt; 2 sec, strong peripheral pulsesRADIOGRAPHS (personally reviewed): The patient has a total knee in place.Alignment position look good. No josiane evidence of loosening.IMPRESSION: Encounter Diagnosis ICD-10-CM1. 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 I encouraged her to continuetrying. I encouraged her to get on the bicycling use the momentum to try andget the knee to bend more. I also cautioned against her having any othersurgery. I explained to her that given the fact that she formed such exuberantscar tissue that any further surgery could actually make it worse. I answeredall of her questions to the best of my ability.Follow Up: When necessary.PROCEDURE:None .Neal Mccormick Jr, MDReferring Provider: JACE CUELLAR JR [[id number]]Allergies As of Date: 12/17/2016(Not on File)Date Reviewed: 12/17/2016Reviewed by: Augusta Sin Ma - Fully AssessedReason for Visit: Left Knee Pain [1208]Primary Visit Diagnosis:Stiffness of knee joint, left [M25.662]Prescriptions as of 12/17/2016 Sig: FENOFIBRATE 160 MG TABLET Take 160 mg by mouth once carson* CITALOPRAM 20 MG TABLET Take 20 mg by mouth once rosemarie* BACLOFEN 10 MG TABLET Take 10 mg by mouth three sandra* AMITRIPTYLINE 25 MG TABLET Take 25 mg by mouth daily at * ROSUVASTATIN 10 MG TABLET Take 10 mg by mouth once rosemarie* OXYBUTYNIN CHLORIDE ER 5 MG T* Take 5 mg by mouth once daily.Problem List As Of Date: 12/17/2016(None)[facility]: [id number] Status:Closed by NEAL MCCORMICK JR, MD on 12/17/16 Normal [facility] PROGRESSon 12-17-2016 PROGRESS HNO ID: [id number]: Neal Mccormick Jr.Service: (none)Author Type: PhysicianType: Progress NotesFiled: 12/17/2016 5:34 PMNote Text:HISTORY OF PRESENT ILLNESS:Giovani is a 61 year old female. She is here for evaluation of Left kneestiffness. She says it only rarely does she have pain. She reports thatshe had a left total knee done in April 2016. She reports thatpreoperatively it was stiff. Postoperatively, it is very stiff.Injury:NoLocation of pain: global when presentMechanical Symptoms: grindingOnset: the past 6 months. Again, it is stiffness more than pain.Severity:08/17Swelli ng: Patient notes intermittent swelling of the joint.Aggravating/Allevi ng Factors:Aggravating Factors: Regular daily ambulationAlleviating Factors: RestAssociated symptoms: NonePrior Treatment: surgery (has undergone Left total knee replacement, nopaperwork received)NSAIDS: Patient has not used any prescription, OTC or herbal medicationsto aid in relief of this problem.PT:Musculoskelet al Physical TherapyREVIEW OF SYSTEMSThe remainder of the review of systems is noncontributoryAll other systems negative.HISTORY No past medical history on file.No past surgical history on file.Social HistorySubstance Use Topics- Smoking status: Not on file- Smokeless tobacco: Not on file- Alcohol use Not on fileMEDICATIONSNo current outpatient prescriptions on file prior to visit.No current facility-administered medications on file prior to visit.ALLERGIESALLERGIES Not on FileEXAMINATION:There were no vitals taken for this visit.Body Habitus: well developed, well nourishedOrientation: Normal: Oriented to person, place and timeAffect: normalGait: antalgic: leftExamination of the Left kneeKnee Examination Left KneeSkin The patient has a well-healed midline incision.Effusion 1+ effusionAlignment normalRange of motion 10? through 90 degreesQuadriceps examination full (5/5) quadriceps strength bilaterally withoutsigns of atrophyPatellar examination Decreased patellar mobilityTenderness medial joint lineMeniscus NonapplicableStability Collateral knee ligaments (LCL/MCL) are all intact with nosignificant laxity noted bilaterallyAdditional Testing no significant restriction in hip range of motion andno contribution to the knee complaints todaySensation: sensation to light touch is grossly normal bilaterallyPulses: capilliary refill < 2 sec, strong peripheral pulsesRADIOGRAPHS (personally reviewed): The patient has a total knee in place.Alignment position look good. No josiane evidence of loosening.IMPRESSION: Encounter Diagnosis ICD-10-CM1. 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 I encouraged her tocontinue trying. I encouraged her to get on the bicycling use themomentum to try and get the knee to bend more. I also cautioned againsther having any other surgery. I explained to her that given the fact thatshe formed such exuberant scar tissue that any further surgery couldactually make it worse. I answered all of her questions to the best of myability.Follow Up: When necessary.PROCEDURE:None .Neal Mccormick Jr, MD Normal [facility] PROGRESS HNO ID: [id number]: Alexa Álvarez (Rt) FredSer: (none)Author Type: TechnicianType: Progress NotesFiled: 12/17/2016 2:56 PMNote Text: Radiology Service Progress NotePATIENT NAME: Giovani RoaMRN: [id number] OF SERVICE: December 17, 2016TIME: 2:56 PMPATIENT IDENTITY VERIFICATION COMPLETED USING TWO (2) METHODS: Patientconfirmed name verbally and Date of .PATIENT GENDER DATA: Female. status: : NoBreastfeeding status: NO.PATIENT RELEVANT IMPLANT DATA REVIEWED: Not ApplicableRADIOLOGY DEPARTMENT: General X-ray: Exam(s) Completed: Lower ExtremityX-Ray(s): Knee, AP / Lat / Merchant Left:PERIPHERAL IV DATA: Not applicableSIGNED BY: Alexa Ibarra, [facility] 2016 2:56 PM Normal [facility] XR KNEE AP/LAT/MERCHANTon XR KNEE AP/LAT/MERCHANT * * *Final Report* * *DATE OF EXAM: Dec 17 2016 2:57PM LZX 1428 - XR KNEE AP/LAT/MERCHANT - LEFT / REASON: Unilateral primary osteoarthritis, unspecified knee * * * * Physician Interpretation * * * * EXAMINATION: XR KNEE AP/LAT/MERCHANTHISTORY: painful left tka Unilateral primary osteoarthritis, unspecified knee .TECHNIQUE: XR KNEE AP/LAT/MERCHANT Laterality: LEFT Number of different views (projections): 3 M: XB_1COMPARISON: NoneRESULT:Cemented total knee arthroplasty with resurfaced patella demonstrates intact components in expected position and alignment. Mild supra and infrapatellar fullness is present. No periprosthetic or other osseous abnormality.No other significant abnormality.IMPRESSION:I ntact cemented total knee arthroplasty with resurfaced patella shows normal appearances.Transcriptio nist: PSCB Transcribe Date/Time: Dec 17 2016 2:59PDictated by : IVELISSE NARVAEZ MDThibeata examination was interpreted and the report reviewed and electronically signed by: IVELISSE NARVAEZ MD on Dec 17 2016 3:00PM EST Normal [facility] Vital Signs Date Time Vital Sign Value Performing Clinician Facility 12-09-2021 18:00-0400 Body height 157.48 cm Laura [facility] Other 12-09-2021 18:00-0400 Body mass index (BMI) [Ratio] 32.92 kg/m2 Laura Rivera Other [facility] Other 12-09-2021 18:00-0400 Body temperature 98.2 [degF] Laura Rivera Other [facility] Other 12-09-2021 18:00-0400 Body weight 81.65 kg Laura Rivera Other [facility] Other 12-09-2021 18:00-0400 Respiratory rate 18 /min Laura Rivera Other [facility] Other 12-09-2021 18:00-0400 SaO2% (BldA) [Mass fraction] 97 % Laura Rivera Other [facility] Other Encounters Encounter Date Encounter Type Care Provider Facility Start: 01-24-2024 End: 01-25-2024 Telephone encounter Jr. Jace Cuellar DO Work Phone: [facility] Comment on above: handicap placard Start: 12-29-2023 End: 12-29-2023 ambulatory Opal L Jasson [facility] Start: 06-23-2023 End: 06-23-2023 ambulatory Opal L Jasson [facility] Start: 06-08-2023 End: 06-08-2023 ambulatory Opal L Jasson [facility] Start: 01-08-2023 End: 01-08-2023 ambulatory Opal Spaulding Facility:[facility] Taty gruber Start: 10-05-2022 Encounter for genera l adult medical examination without abnormal findings DR TRACY GAYTAN . [facility] Start: 10-03-2022 End: 10-04-[address] TRACY GAYTAN . Facility: Start: 10-03-2022 End: 10-04-2022 Encounter for general adult medical examination without abnormal findings DR TRACY GAYTAN . Facility:[facility] Start: 10-02-2022 End: 10-03-[address] TRACY GAYTAN . Facility:[facility] Start: 01-26-2022 End: 01-27-[address] TRACY GAYTAN . Facility:[facility] Start: 12-09-2021 End: 12-09-2021 ambulatory Laura [facility] Other Start: 12-09-2021 Office outpatient vi sit 15 minutes Laura Rivera [facility] Start: 07-21-2018 End: 07-21-2018 Patient encounter procedure Tracy Gaytan Facility:[facility] Start: 07-07-2018 End: 07-07-2018 Patient encounter procedure Tracy Gaytan Facility:[facility] Start: 12-17-2016 End: 12-17-2016 Ambulatory [facility] Procedures Date Procedure Procedure Detail Performing Clinician Screening for malign ant neoplasm of colon [facility] Other Plan of Treatment Date Care Activity Detail Author Start: 01-09-2024 Influenza vaccination Influenza Vacc ine (#1) [facility] Start: 2022 Pneumococcal Vaccine : 65+ Years (1 of 1 - PCV) Pneumococcal Vaccine: 65+ Years (1 of 1 - PCV) [facility] Start: 1997 Screening for malign ant neoplasm of breast Mammogram [facility] Start: 1955 Screening for malign ant neoplasm of colon [facility] Payers Date Payer Category Payer Unknown [employer] [id number] 2022-Present [phone] [address] [address] [place] [address] [id number] 2018 Self-pay 2018 Unknown [id number] 1959 Unknown [id number] 1959 Unknown [id number] 1957 Unknown [id number] 3 1957 Unknown [id number] 3 1957 Unknown [id number] 3 1957 Unknown [id number] 7 1957 Unknown [id number] 7 1957 Unknown [id number] 7 1957 Unknown [id number] 7 Unknown [id number] 1 Unknown [id number] 1 Social History Date Type Detail Facility Start: 02-16-2023 Sex Assigned At [facility] Other Start: 02-16-2023 Tobacco smoking stat [facility] Never smoked tobacco [facility] Start: 02-16-2023 History of Social function [facility] Start: 1955 Sex assigned at Not on file [facility] Telephone encounter Note 01-24-2024 Telephone Encounter - Lindsay Anil - 01/24/2024 4:03 PM EDT Note Date & Type Note Facility 09-16-2024 Telephone encount er Note Received script and called patient and informed her it is here in [place] office. [facility] Note 01-24-2024 Telephone Encounter - Lindsay Ma - 01/24/2024 4:03 PM EDTTelephone Encounter - Deirdre Kenney MA - 01/24/2024 3:43 PM EDTTelephone Encounter - BELKIS Madrigal - 01/24/2024 3:37 PM EDT Note Date & Type Note Facility 01-24-2024 Miscellaneous Notes Formattin g of this note might be different from the original. Received script and called patient and informed her it is here in [place] office. Discussed and ok to provide per Dr. Cuellar. Lindsay - rx has been faxed out to you in [place], please call patient and let her know she can pick it up there. Thank you! Hill Gilmore has not been seen since 09/06/2019, looks like arthritis (L) Hip.. can you see if Dr. Cuellar wants to renew it or have her get it from PCP. Pt stopped at window asking if she could get her handicap placard renewed? She has had a hx of sx with Dr Cuellar. RT MYRANDA 2008, LT TKA (?). It expires in February. Her call back [phone] documented in this encounter [facility] Telephone encounter Note 01-24-2024 Telephone Encounter - Deirdre Kenney MA - 01/24/2024 3:43 PM EDT Note Date & Type Note Facility 01-24-2024 Telephone encount er Note Discussed and ok to provide per Dr. Cuellar. Lindsay - rx has been faxed out to you in [place], please call patient and let her know she can pick it up there. Thank you! [facility] Telephone encounter Note 01-24-2024 Telephone Encounter - BELKIS Madrigal - 01/24/2024 3:37 PM EDT Note Date & Type Note Facility 01-24-2024 Telephone encounter Note Deirdre, Pt has not been seen since 09/06/2019, looks like arthritis (L) Hip.. can you see if Dr. Cuellar wants to renew it or have her get it from PCP. [facility] Work Phone: Telephone encounter Note 01-24-2024 Telephone Encounter - Lindsay Ma - 01/24/2024 3:13 PM EDT Note Date & Type Note Facility 01-24-2024 Telephone encount er Note Pt stopped at window asking if she could get her handicap placard renewed? She has had a hx of sx with Dr Cuellar. RT MYRANDA 2008, LT TKA (?). It expires in February. Her call back [phone] [facility] Evaluation note 12-09-2021 Note Date & Type Note Facility 12-09-2021 Evaluation note Encounter Date Diagnosis Assessment Notes Dec, Bronchitis (ICD-10 - J40) Take medications as directed. Rest and increase fluid intake. Take meds with food to prevent stomach upset. Use inhaler as needed for coughing spells and SOB. It is better to use inhaler a few times a day over the next 2-3 days. Follow up with primary care provider if symptoms do not improve with treatment plan, although it may take a few weeks for the cough to go away Dec, COVID-19 (ICD-10 - U07.1) Today you tested positive for the COVID virus. This mean you need to follow all CDC quarantine guidelines found at coronavirus.oh io.gov. It is important to rest, increase fluids, and stay at home. Recommend contacting primary care provider and discussing best course of action if you have chronic health conditions. [facility] Other Evaluation note Note Date & Type Note Facility Evaluation note Diagnosis Primary osteoarthritis of left hip- Primary Arthralgia of right knee documented in this encounter [facility] History general Narrative - Reported Note Date & Type Note Facility History general Narrative - Reported Type Medical History hypercholesterolemia Medical History chronic depression [facility] Other Summary Purpose Family History No Family History Records FoundNo Family History Records FoundNo Family History Records FoundNo Family History Records Found Advance Directives No Advanced Directives Records FoundNo Advanced Directives Records FoundNo Advanced Directives Records FoundNo Advanced Directives Records Found Additional Source Comments INFORMATION SOURCE (unrecogn ized section and content) DATE CREATED AUTHOR 11/03/2017 [facility] DATE CREATED AUTHOR AUTHOR'S ORGANIZ ATION 08/12/2018 [facility] DATE CREATED AUTHOR AUTHOR'S ORGANIZ ATION 10/16/2022 [facility] DATE CREATED AUTHOR AUTHOR'S ORGANIZ ATION 01/04/2024 [facility] REASON FOR VISIT (unrecogniz ed section and content) Reason Onset Date Comments handicap placard 01/24/2024 Care Teams (unrecognized sec tion and content) 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 This clinical summary was aggregated from multiple sources. Caution should be exercised in using it in the provision of clinical care. This summary normalizes information from multiple sources, and as a consequence, information in this document may materially change the coding, format and clinical context of patient data. In addition, data may be omitted in some cases. CLINICAL DECISIONS SHOULD BE BASED ON THE PRIMARY CLINICAL RECORDS. [facility] provides no warranty or guarantee of the accuracy or completeness of information in this document.
[2024-06-01] MEDS: KETOROLAC TROMETHAMINE 30 MG/ML VIAL IM (08:15)
--- NOTE | 2024-06-01 08:31 | ED_ITS ---
HPI HPI - Extremity Injury (Lower) General Chief Complaint: Extremity Injury, Lower Stated Complaint: fall - work Time Seen by Provider: 06/01/24 07:49 Mode of arrival: Wheelchair History of Present Illness HPI Narrative: Ms. Bar is coming to the ER after she had a work injury, she was at work when she was walking down steps, the patient have a history of foot drop in the right leg and she have to go down steps 1 leg at the time, she mentioned that she was feeling while she is going down steps initially some tingling at the posterior aspect of the right knee then she started having pain and she lowered herself to the ground there was no fall. Since then the patient has not been able to put weight on her right knee She have tenderness upon palpation of the posterior aspect of the knee and she mentioned that she have no back pain at any time Related Data Previous Rx's ?Medication ?Instructions ?Recorded diclofenac sodium 50 mg 50 mg PO Q12H PRN pain #14 tabs 06/01/24 tablet,delayed release Allergies Allergy/AdvReac Type Severity Reaction Status Date / Time No Known Drug Allergies Allergy Verified 06/01/24 07:43 Opioid HPI Opioid Management Most Recent Pain and Opioid Data: Last Pain Scale 10 06/01/24 08:15 06/01/24 Last MAR Pain Assessment 06/01/24 08:15 Review of Systems ROS Status of ROS 10 or more systems reviewed and unremark able except as noted in history and below PFSH PFSH Social History Little interest or pleasure in doing things: not at all Feeling down, depressed, or hopeless: not at all Exam Narrative Exam Narrative: Nurses notes and vital signs reviewed and patient is not hypoxic. General: Well-appearing and in no apparent distress. Skin: Warm, dry, no pallor noted. No rash. Head: Normocephalic, atraumatic. Musculoskeletal: There is no tenderness upon palpation of the posterior aspect of the calf but the patient have tenderness upon palpation posterior aspect of the right knee with a mild effusion it was noted that the patient only have pain when trying to stand up on her right knee, anterior and posterior drawer signs were negative and the patient had some foot drop in the right foot that the patient mentioned that is not new No vascular issues detected and the patient had a good anterior tibial pulse Neurological: A&O x4. No cranial nerve dysfunction observed. No truncal ataxia. Moves all extremities. Sensation intact. Psychiatric: Cooperative and interactive. Normal mood and affect. Constitutional Vital Signs, click to edit/add: Last Vital Signs Temp 98.7 F 06/01/24 07:43 Pulse 79 06/01/24 07:43 Resp 18 06/01/24 07:43 BP 137/78 06/01/24 07:43 Pulse Ox 95 06/01/24 07:43 O2 Del Method Room Air 06/01/24 07:43 Course Vital Signs Vital signs: Vital Signs Temperature 98.7 F 06/01/24 07:43 Pulse Rate 79 06/01/24 07:43 Respiratory Rate 18 06/01/24 07:43 Blood Pressure 137/78 06/01/24 07:43 Pulse Oximetry 95 06/01/24 07:43 Oxygen Delivery Method Room Air 06/01/24 07:43 Temperature 98.7 F 06/01/24 07:43 Pulse Rate 79 06/01/24 07:43 Respiratory Rate 18 06/01/24 07:43 Blood Pressure 137/78 06/01/24 07:43 Pulse Oximetry 95 06/01/24 07:43 Oxygen Delivery Method Room Air 06/01/24 07:43 MDM - Extremity Injury (Lower) MDM Narrative Medical decision making narrative: X-ray of the right knee shows that the patient have no bony abnormality but the patient has have effusion The patient was placed in a knee immobilizer provided with Toradol in the ER The patient then was discharged home with instruction to nonweightbearing as she have crutches at home she is to follow-up with orthopedic as outpatient With instruction to the patient that after 7 days of resting she can reevaluate in case of no pain she can stop using crutches but she still need to follow-up with orthopedic NSAID for pain management Work comp paper filled The patient is to follow up with primary care physician in next 2-3 days or to return to the emergency department should any of the signs or symptoms worsen or new symptoms develop. The patient agrees with the following Diagnosis and Treatm ent plan and the patient will be discharged home. Discharge Plan Discharge Chief Complaint: Extremity Injury, Lower Clinical Impression: Knee effusion, Injury of knee Patient Disposition: Home, Self-Care Time of Disposition Decision: 09:33 Condition: Good Prescriptions / Home Meds: New diclofenac sodium 50 mg tablet,delayed release (DR/EC) 50 mg PO Q12H PRN (Reason: pain) Qty: 14 0RF Print Language: Syriac Instructions: Crutch Instructions (ED), Swollen Knee Joint (ED) Referrals: RAFAELA FRYE [Primary Care Provider] - 1 week Nelson Biggs MD [Physician] - As soon as possible Discharge Date/Time: 06/01/24 09:55
--- NOTE | 2024-06-01 09:53 | PC.NURSE ---
knee immobilizer applied to right knee, pms intact pre and post immobilizer placement, pt tolerated well. pt has her own crutches at home, pt wheeled to er exit awaiting transportation home.
[2024-06-01 09:55] VITALS: BP 134/88; PULSE 84; O2SAT 100
== END 2024-06-01 09:55 | disposition home or self-care (01) ==
PROVIDERS: Emergency Provider Emergency Medicine; PCP Nurse Practitioner
DX: S89.91XA Unspecified injury of right lower leg, initial encounter (principal); X58.XXXA Exposure to other specified factors, initial encounter; M25.461 Effusion, right knee
CPT/HCPCS: 73562; 96372; 99284; J1885

== ENCOUNTER 2025-01-02 10:29 | Outpatient (RCR) | payer OTHER, SELFPAY | END 2025-02-15 06:48 | disposition home or self-care (01) | LOC: PT 10:29 | PROVIDERS: PCP Nurse Practitioner; Visit Provider Personal Emergency Response Attendant | DX: M25.561 Pain in right knee (principal); Z96.651 Presence of right artificial knee joint | CPT/HCPCS: 97110; 97112; 97140; 97162 ==